=== PATIENT | male | born 1985 | race American Indian/Alaskan Native ===

== ENCOUNTER 2020-04-22 06:45 | Emergency (ER) | payer SELFPAY ==
--- NOTE | 2020-04-22 07:14 | EDM.PDOC ---
ED HPI GENERAL MEDICAL PROBLEM - General Chief Complaint: Abdominal Pain Stated Complaint: gaulbladder stones?? Time Seen by Provider: 04/22/20 07:11 Source of Information: Reports: Patient, RN, RN Notes Reviewed History Limitations: Reports: No Limitations - History of Present Illness INITIAL COMMENTS - FREE TEXT/NARRATIVE: Pr presents to ED from home by POV with c/o gallstone pains. Pt states he was seen at [facility] clinic on Thursday and told that he has gallstones and that one stone is stuck in the "upper portion of a tube or something" He does not remember where it stuck at. He states he was told to stay with on clear liquids, which he did. However, they only told him to have his liquids clear, and didn't tell him anything about what food to eat, so he ate deep fried [place] food last night and now has increased pain with nausea. Pt states he thinks the clinic is going to refer him to a surgeon, but he is unsure if he is to go back to clinic, or if he should just wait for a call. Pt reports his pain is at the RUQ and epigastric area, and radiates to the right upper back. He admits to nausea, but no vomiting. He rates the pain 9/10. He last ate late last evening. Onset: Gradual Duration: Constant, Intermittent, Waxing/Waning Location: Reports: Abdomen Quality: Reports: Ache, Same as Previous Episode Severity: Severe Improves with: Reports: None Worsens with: Reports: Eating Associated Symptoms: Reports: No Other Symptoms Upper Abdomen Pain Score (Numeric/FACES): 8 - Related Data Allergies Allergy/AdvReac Type Severity Reaction Status Date / Time No Known Allergies Allergy Verified 04/22/20 07:05 Home Meds: Home Meds Ciprofloxacin [Ciprofloxacin HCl] 500 mg PO BID 04/22/20 [History] Omeprazole 20 mg PO DAILY 04/22/20 [History] metroNIDAZOLE [Flagyl] 500 mg PO Q12H 04/22/20 [History] Past Medical History Gastrointestinal History: Reports: Cholelithiasis Social & Family History - Family History Family Medical History: Unobtainable (Pt unsure) - Living Situation & Occupation Living situation: Reports: with Family ED ROS GENERAL - Review of Systems Review Of Systems: Comprehensive ROS is negative, except as noted in HPI. ED EXAM, GI/ABD - Physical Exam Exam: See Below Exam Limited By: No Limitations General Appearance: Alert, WD/WN, No Apparent Distress, Other (Uncomfortable but non-toxic appearing). No: Active Emesis Eyes: Bilateral: Normal Appearance (No scleral icterus) Nose: Normal Inspection Throat/Mouth: Normal Voice, No Airway Compromise Head: Atraumatic, Normocephalic Neck: Normal Inspection Respiratory/Chest: No Respiratory Distress, Lungs Clear, Normal Breath Sounds, No Accessory Muscle Use, Chest Non-Tender Cardiovascular: Regular Rate, Rhythm GI/Abdominal Exam: Normal Bowel Sounds, Soft, No Organomegaly, No Distention, Tender (RUQ). No: Guarding, Rigid, Rebound Back Exam: Normal Inspection, Full Range of Motion. No: CVA Tenderness (L), CVA Tenderness (R), Vertebral Tenderness Extremities: Normal Inspection Neurological: Alert, Oriented, No Motor/Sensory Deficits Psychiatric: Normal Affect, Normal Mood Skin Exam: Warm, Dry, Intact, Normal Color, No Rash. No: Jaundice Course - Vital Signs Last Recorded V/S: Last Vital Signs Temp 97.8 F 04/22/20 07:07 Pulse 70 04/22/20 07:07 Resp 18 04/22/20 07:07 BP 143/95 H 04/22/20 07:07 Pulse Ox 100 04/22/20 07:07 - Orders/Labs/Meds Orders: Active Orders 24 hr Category Date Time Status Peripheral IV Care [RC] . DIRECTED Care 04/22/20 07:20 Active Sodium Chloride 0.9% [Saline Flush] Med 04/22/20 07:20 Active 10 ml FLUSH ASDIRECTED PRN Peripheral IV Insertion Adult [OM.PC] Stat Oth 04/22/20 07:18 Ordered Medication Orders Sodium Chloride (Saline Flush) 10 ml FLUSH ASDIRECTED PRN PRN Reason: Keep Vein Open Last Admin: 04/22/20 07:31 Dose: 10 ml Documented by: GINNY Labs: Laboratory Tests 04/22/20 04/22/20 04/22/20 Range/Units 07:26 07:26 07:26 WBC 7.3 (5.0-10.0) 10^3/uL RBC 4.75 (4.6-6.2) 10^6/uL Hgb 14.3 (14.0-18.0) g/dL Hct 41.7 (40.0-54.0) % MCV 87.8 (80-100) fL MCH 30.1 (27.0-34.0) pg MCHC 34.3 (33.0-35.0) g/dL Plt Count 270 (150-450) 10^3/uL Neut % (Auto) 57.1 (42.2-75.2) % Lymph % (Auto) 26.1 (20.5-50.1) % [place] % (Auto) 10.9 H (2-8) % Eos % (Auto) 5.6 H (1.0-3.0) % Baso % (Auto) 0.3 (0.0-1.0) % Sodium 143 (136-145) mmol/L Potassium 4.0 (3.5-5.1) mmol/L Chloride 107 (98-107) mmol/L Carbon Dioxide 27 (21-32) mmol/L Anion Gap 13.0 (7-13) mEq/L BUN 12 (7-18) mg/dL Creatinine 1.03 (0.70-1.30) mg/dL Est Cr Clr Drug Dosing 102.96 mL/min Estimated GFR (MDRD) > 60 BUN/Creatinine Ratio 11.7 (No establ ref range) Glucose 151 H (74-99) mg/dL Lactic Acid 1.6 (0.4-2.0) mmol/L Calcium 8.3 L (8.5-10.1) mg/dL Total Bilirubin 0.3 (0.2-1.0) mg/dL AST 20 (15-37) U/L ALT 39 (16-63) U/L Alkaline Phosphatase 109 (46-116) U/L Total Protein 6.5 (6.4-8.2) g/dL Albumin 3.5 (3.4-5.0) g/dL Globulin 3.0 Albumin/Globulin Ratio 1.2 Amylase 26 (25-115) U/L Lipase 78 (73-393) U/L Meds: Medications Generic Name Dose Route Start Last Admin Trade Name Freq PRN Reason Stop Dose Admin Sodium Chloride 10 ml 04/22/20 07:20 04/22/20 07:31 Saline Flush FLUSH 10 ml ASDIRECTED PRN Administration Keep Vein Open Discontinued Medications Generic Name Dose Route Start Last Admin Trade Name Freq PRN Reason Stop Dose Admin Hydromorphone HCl 1 mg 04/22/20 07:20 04/22/20 07:31 Dilaudid IVPUSH 04/22/20 07:21 1 mg ONETIME ONE Administration Sodium Chloride 1,000 mls @ 999 mls/hr 04/22/20 07:19 04/22/20 07:31 Normal Saline IV 04/22/20 08:19 999 mls/hr .BOLUS ONE Administration Ondansetron HCl 4 mg 04/22/20 07:19 04/22/20 07:33 Zofran IV 04/22/20 07:20 4 mg ONETIME ONE Administration Departure - Departure Time of Disposition: 08:24 Disposition: Home, Self-Care 01 Condition: Good Clinical Impression: Biliary colic, History of cholelithiasis - Discharge Information *PRESCRIPTION DRUG MONITORING PROGRAM REVIEWED*: Not Applicable *COPY OF PRESCRIPTION DRUG MONITORING REPORT IN PATIENT ZE: Not Applicable Instructions: Biliary Colic, Adult, Gallbladder Eating Plan, Cholelithiasis, [id number] Forms: ED Department Discharge Additional Instructions: Call [phone] to schedule an appointment with Dr. Cool the surgeon. Ask you clinic if a referral is required to make the appointment. Also have your clinic sent your records and gallbladder ultra sound report to Dr. Cool at the hospital here in [place]. Rx: Zofran 4mg Clear liquids, and soft bland diet. Avoid fried, greasy, and high fat foods. Eat small meals of lean meats, fruit, and vegetables. Sepsis Event Note (ED) - Evaluation Sepsis Screening Result: No Definite Risk - Focused Exam Vital Signs: Vital Signs Temp Pulse Resp BP Pulse Ox 04/22/20 07:07 97.8 F 70 18 143/95 H 100 - My Orders Last 24 Hours: My Active Orders 04/22/20 07:18 Peripheral IV Insertion Adult [OM.PC] Stat 04/22/20 07:20 Peripheral IV Care [RC] . DIRECTED Sodium Chloride 0.9% [Saline Flush] 10 ml FLUSH ASDIRECTED PRN - Assessment/Plan Last 24 Hours: My Active Orders 04/22/20 07:18 Peripheral IV Insertion Adult [OM.PC] Stat 04/22/20 07:20 Peripheral IV Care [RC] . DIRECTED Sodium Chloride 0.9% [Saline Flush] 10 ml FLUSH ASDIRECTED PRN
[2020-04-22] MEDS ORDERED: Sodium Chloride 0.9% 1,000 ML IV ONE (07:19)
[2020-04-22] MEDS ORDERED: Ondansetron 4 MG/2 ML SDV IV ONE (07:19)
[2020-04-22] MEDS ORDERED: HYDROmorphone 1 MG/ML Syringe IVPUSH ONE (07:20)
[2020-04-22] MEDS ORDERED: Sodium Chloride 0.9% 10 ML Syringe FLUSH PRN (07:20)
[2020-04-22 07:53] LABS: CHLORIDE,CL 107 mmol/L (98-107); SODIUM,NA 143 mmol/L (136-145)
== END 2020-04-22 08:29 | disposition home or self-care (01) ==
LOC: DL.ED 06:45
DX: K80.70 Calculus of gallbladder and bile duct without cholecystitis without obstruction (principal); Z79.899 Other long term (current) drug therapy
CPT/HCPCS: 36415; 80053; 82150; 83605; 83690; 85025; 96361; 96374; 96375; 99284; J1170; J2405; J7030; 99283

== ENCOUNTER 2023-04-18 23:43 | Emergency (ER) | payer OTHER ==
[2023-04-19] MEDS ORDERED: Ketorolac 30 MG/ML SDV IM ONE (00:57)
[2023-04-19] MEDS ORDERED: Bacitracin Oint 1 GM U/D Packet TOP ONE (01:01)
== END 2023-04-19 01:18 | disposition home or self-care (01) ==
LOC: DL.ED 23:43
DX: S81.831A Puncture wound without foreign body, right lower leg, initial encounter (principal); F17.210 Nicotine dependence, cigarettes, uncomplicated; V19.9XXA Pedal cyclist (driver) (passenger) injured in unspecified traffic accident, initial encounter
CPT/HCPCS: 96372; 99282; A9270-GY; J1885